=== PATIENT | female | born 1955 | race Caucasian/White ===

== ENCOUNTER → 2020-06-06 11:57 | Outpatient (CLI) | payer MEDICARE, BC, SELFPAY ==
--- NOTE | ~2020-06-06 | DEXA_ITS ---
Bone Density Report Name: Tangela Cook Age: 64 Sex: Female Ethnicity: White Date of : 1955 Indication: postmenopausal; screening for osteoporosis; parental hip fracture; height loss; Referring Provider: Carine Morales Study: Bone densitometry was performed. Exam Date: June 06, 2020 Accession number: [id number] Bone Density: Region BMD T-score Z-score Classification AP Spine (L1-L4) 0.966 -0.7 1.1 Normal Femoral Neck (Left) 0.653 -1.8 -0.2 Osteopenia Total Hip (Left) 0.820 -1.0 0.2 Normal Femoral Neck (Right) 0.719 -1.2 0.4 Osteopenia Total Hip (Right) 0.863 -0.6 0.6 Normal Total Hip Mean 0.842 -0.8 0.4 Normal World Health Organization criteria for BMD impression classify patients as: Normal (T-score at or above -1.0), Osteopenia (T-score between -1.0 and -2.5), or Osteoporosis (T-score at or below -2.5). 10-year Fracture Risk(1): Major Osteoporotic Fracture 18% Hip Fracture 1.3% Reported Risk Factors: [place] (), Neck BMD=0.653, BMI=29.1, parental fracture (1) FRAX(R) Version 3.08. Fracture probability calculated for an untreated patient. Fracture probability may be lower if the patient has received treatment. Clinical Information Provided by Patient: Parent has had a hip fracture Has used the following medications: Vitamin D Patient maximum height was 66 Menopause Age: 44 No regular weight bearing exercise Drinks caffeinated beverages Onset of menses at age 14 Number of children 1 Impression: The patient has low bone mass, based on the Left Femoral Neck T-score. The patient has an estimated ten-year risk of hip fracture of 1.3% and an estimated ten-year risk of major fracture of 18%, based on the WHO FRAX algorithm. The patient has risk factors, including: parental hip fracture. Discussion: BONE DENSITY IS LOW AT ONE OR MORE SKELETAL SITES. This patient's lowest T-score is low at one or more skeletal sites. It meets the World Health Organization's (WHO) criteria for ?low bone mass? (T-score between -1.0 and -2.5). The patient's 10-year risk of fracture as calculated by FRAX is less than the threshold where pharmacological therapy is recommended by the National Osteoporosis Foundation (NOF). However, all treatment decisions require clinical judgment and consideration of individual patient factors, including patient preferences, comorbidities, previous drug use, risk factors not captured in the FRAX model (e.g., frailty, falls, vitamin D deficiency, increased bone turnover, interval significant decline in bone density) and possible under or overestimation of fracture risk by FRAX. The patient should follow a healthful lifestyle (good nutrition with adequate calcium and vitamin D, and appropriate weight-bearing exercise). Follow-Up: Consider repeating this study in 2 t
--- NOTE | ~2020-06-06 | XR_ITS ---
EXAMINATION: XR thoracic spine 2V DATE: 06/06/2020 13:08 INDICATION: Dorsalgia, unspecified. TECHNIQUE: 3 views of thoracic spine were obtained. COMPARISON: None. FINDINGS: There is 9 degrees levocurvature of lower thoracic spine. Vertebral body heights are normal . There is moderate to severely decreased disc height at multiple levels in mid thoracic spine. There are changes of anterior fusion procedure in cervical spine. Bilateral breast implants are noted. IMPRESSION: 1. Severe thoracic spondylosis. Reviewed, dictated and finalized at location A.
--- NOTE | ~2020-06-06 | XR_ITS ---
XR lumbar spine 2-3V 06/06/2020 13:08 Indication: Back pain Procedure: 3 views lumbar spine Comparison: No prior studies for comparison. Findings: There is disc narrowing at all lumbar levels. Normal lumbar lordosis. No fracture, subluxat ion or dislocation. There is dextroconvex scoliosis centered at L2-3. Sacral foramen are symmetric. Impression: 1: Moderate lumbar spondylosis with dextrocurvature of the lumbar spine. Reviewed, dictated and finalized at location B. Impression: 1: Moderate lumbar spondylosis with dextrocurvature of the lumbar spine.
== END ==
PROVIDERS: Visit Provider Physician Assistant
DX: M47.896 Other spondylosis, lumbar region (principal); M47.894 Other spondylosis, thoracic region; Z78.0 Asymptomatic menopausal state; M85.852 Other specified disorders of bone density and structure, left thigh; M85.851 Other specified disorders of bone density and structure, right thigh
CPT/HCPCS: 72070; 72100; 77080

== ENCOUNTER 2022-12-28 01:34 | Day surgery (SDC) | payer MEDICARE, SELFPAY ==
[2022-12-27 13:21] VITALS: BMI 33.3
[2022-12-28] VITALS (10 sets, daily range): BP systolic 122–154; BP diastolic 59–99; PULSE 70–81; RESP 14–18; TEMP 36.3–36.4; O2SAT 94–98; BMI 33.1
[2022-12-28 08:27] LABS: Basophils Absolute Auto 0.1 K/mm3 (0.0-0.1); Eosinophils Absolute Auto 0.2 K/mm3 (0-0.3); Eosinophils Percent Auto 2.9 % (0-4.4); Hematocrit 43.4 % (37.0-47.0); Hemoglobin 14.3 g/dL (12.0-15.0); Immature Granulocyte Absolute 0.02 K/mm3 (0.00-0.031); Immature Granulocyte Percent A 0.3 % (0-0.5); Lymphocytes Absolute Auto 1.96 K/mm3 (0.9-3.2); Lymphocytes Percent Auto 26.7 % (18.3-44.2); Mean Corpuscular HGB Conc 32.9 g/dl (32-36); Mean Corpuscular Hemoglobin 29.6 pg (26-34); Mean Corpuscular Volume 89.9 fl (80-100); Mean Platelet Volume 9.4 fl (7.4-10.4); Monocytes Absolute Auto 0.6 K/mm3 (0.1-0.6); Monocytes Percent Auto 7.5 % (2.6-8.5); Neutrophils Absolute Auto 4.5 K/mm3 (1.3-6.7); Neutrophils Percent Auto 61.6 % (45.5-73.1); Platelet Count Result 308 k/mm3 (150-375); Red Blood Count 4.83 M/mm3 (4.2-5.4); Red Cell Distribution Width 14.2 % (11.5-14.5); White Blood Count 7.3 K/mm3 (4.5-10.0)
[2022-12-28 08:36] LABS: Anion Gap 6 mmol/L (8-16); Blood Urea Nitrogen 27 mg/dL (7-17); Calcium 9.1 mg/dL (8.4-10.2); Carbon Dioxide 28 mmol/L (22-30); Chloride 104 mmol/L (98-107); Estimated CRCL calculation 82 ml/min; Estimated Glomerular Filt Rate > 60; Glucose 100 mg/dL (65-110); Potassium 4.4 mmol/L (3.4-5.0); Sodium 138 mmol/L (137-145)
[2022-12-28 08:38] LABS: Prothrombin Time 12.6 Seconds (11.1-14.7)
--- NOTE | 2022-12-28 11:14 | WPDHPUPDATE1 ---
History and Physical Update Update Date/Time: 12/28/22 11:14 History and Physical has been reviewed, including an updated exam of the patient. There are NO changes in the patient's condition. Risks, benefits, and alternatives have been discussed and questions answered. Patient agrees to proceed with procedure.
--- NOTE | 2022-12-28 11:14 | WPDMODSED ---
Moderate Sedation Note-Pt Data Patient Data Diagnosis: Coronary artery disease Present Complaint: Coronary artery disease Procedure to be performed/Plan: Coronary angiography, LHC, +/- PCI Allergies Allergy/AdvReac Type Severity Reaction Status Date / Time codeine Allergy Unknown Rash Verified 12/27/22 13:59 morphine AdvReac Unknown Vomiting Verified 12/27/22 13:59 pentazocine AdvReac Unknown Confusion Verified 12/27/22 13:59 Home Medications Medication Instructions Recorded Confirmed Type ergocalciferol (vitamin D2) 1,250 1,250 mcg PO WEEKLY #12 caps 08/03/22 12/27/22 Rx mcg (50,000 unit) capsule aspirin 81 mg tablet 81 mg PO DAILY 12/27/22 12/28/22 History atorvastatin 40 mg tablet 40 mg PO DAILY 12/27/22 12/27/22 History calcium citrate 500 mg (2,376 mg) 1,000 mg PO DAILY 12/27/22 12/27/22 History effervescent tablet omeprazole 20 mg tablet,delayed 20 mg PO DAILY 12/27/22 12/28/22 History release Current Medications: Active Medications Sodium Chloride (Normal Saline Iv) 500 mls @ 100 mls/hr IV CONT .Q5H GALO Sedation/Anesthesia: No previous sedation/anesthesia problems (including family history). [facility] Past Medical History Medical History Healthy adult Osteopenia Spinal stenosis Surgical History Surgical History H/O cervical discectomy H/O laminectomy History of appendectomy Family History Family History Sibling Diabetes mellitus Father Hypertension Family history of cardiovascular disease Cerebrovascular accident Mother Hypertension Family history of cardiovascular disease Cerebrovascular accident Social History Social History Smoking status: Former smoker Tobacco type: cigarettes Second hand tobacco smoke exposure: No Smoking end date: 09/19/12 Alcohol intake: current Drinks per week: 1 Alcohol use details: occasional glass of wine Substance use: former Substance use type: marijuana Living arrangements: with family Spiritual care concerns: No Mod Sed Physical Exam Physical Exam Pre Procedural Exam: Normal: Appearance, Lungs, Heart Rate, Heart Rhythm, Neuro Exam, Abdomen, Extremities and Skin Hours since solid foods: 12 Hours since liquid intake: 8 Mallampati Classification: class III Internal Medicine - PN: Obj Da Vital Signs Vital Signs: Vital Signs - 24 hr 12/28/22 08:10 Temperature 36.3 C L Pulse Rate 80 Respiratory Rate 16 Blood Pressure 145/66 H Pulse Oximetry 94 Oxygen Delivery Room Air Intake/Output Intake/Output: Intake & Output 12/25/22 12/26/22 12/27/22 12/28/22 23:59 23:59 23:59 23:59 Intake Total 0 Balance 0 Meds/Results Medications: Active Medications Generic Name Dose Route Start Last Admin Trade Name Freq PRN Reason Stop Dose Admin Sodium Chloride 500 mls @ 100 mls/hr 12/28/22 08:00 Normal Saline Iv IV CONT .Q5H GALO Labs 12/28/22 08:18 12/28/22 08:18 Labs: Laboratory Results - last 24 hr 12/28/22 12/28/22 12/28/22 08:18 08:18 08:18 WBC 7.3 RBC 4.83 Hgb 14.3 Hct 43.4 MCV 89.9 MCH 29.6 MCHC 32.9 RDW 14.2 Plt Count 308 MPV 9.4 Immature Gran % (Auto) 0.3 Neut % (Auto) 61.6 Lymph % (Auto) 26.7 Brule % (Auto) 7.5 Eos % (Auto) 2.9 Baso % (Auto) 1.0 Lymph # (Auto) 1.96 Brule # (Auto) 0.6 Eos # (Auto) 0.2 Baso # (Auto) 0.1 Abs Immat Gran (auto) 0.02 Absolute Neuts (auto) 4.5 Absolute Nucleated RBC 0.0 Nucleated RBC % 0.0 PT 12.6 INR 1.0 Sodium 138 Potassium 4.4 Chloride 104 Carbon Dioxide 28 Anion Gap 6 L BUN 27 H Creatinine 0.60 L Estim Creat Clear Calc 82 Estimated GFR > 60 Glucose 100 Calcium 9.1
--- NOTE | 2022-12-28 11:16 | WPDCARDPROC ---
Cardiac Cath Procedure Note Date of procedure:: 12/28/22 Performing physician:: CATHETERIZATION LABORATORY REPORT Procedure Date: 12/28/2022 Automotive Design Drafter: Manda Felton M.D., [facility]? Referring Physician: Manda Felton M.D. ? Anesthesia: Versed and Fentanyl were ordered and given in my presence at 09:55, procedure ended at 11:06. Supervision of nurse monitored moderate sedation with Versed and Fentanyl was provided for 71 minutes. Total of Versed 4mg and Fentanyl 100mcg were administered by the Sap Bpc Developer RN Nicole Burkett. Pre-op Diagnosis: Coronary artery disease, Abnormal coronary CTA, Abnormal coronary CTA FFR Post-op Diagnosis: 1. Significant obstructive ostial LAD stenosis followed distally by a moderate mid LAD stenosis. The IFR of the LAD in the distal vessel is positive for ischemia at 0.84 (<0.89 is positive). 2. Non-obstructive calcific mild disease of the distal left main. MLA of the distal left main on IVUS is 10.4mm2. 3. Moderate stenosis of the mid RCA. IFR of this lesion is negative for ischemia with a value of 0.96 (>0.89 is negative). 4. Right-dominant coronary artery system 5. Left ventricular end-diastolic pressure of 17mmHg Procedure(s): 1. Moderate sedation 2. Ultrasound-guided access of the right radial artery 3. Coronary angiography 4. Left heart cath 5. IFR of the LAD 6. IVUS of the LCX/LM 7. IFR of the RCA Access Site: Right radial artery Brief History and Clinical Indications: Patient is a 67 year old female with anginal symptoms who is referred for [facility] for abnormal stress test. All risks, benefits and alternatives to left heart catheterization with or without percutaneous coronary intervention was discussed at length with the patient. Risk of complications including but not limited to bleeding, infection, arrhythmia, stroke, worsening kidney function, blood loss, groin hematoma, limb loss, emergency coronary artery bypass grafting, and even were discussed with the patient and all questions were answered. The patient understood and wished to proceed. Time out called, patient name, date of , medical record number, allergies, procedure performed, identify Automotive Design Drafter, patient and staff member concurred with accurate data, procedure carried on. Findings: LEFT HEART CATHETERIZATION FINDINGS: 1. Left main: The left main coronary artery has an eccentric calcified mild stenosis. MLA of the distal left main on IVUS is 10.4mm2. 2. Left anterior descending: The ostium of the LAD has an 80-90% stenosis. The proximal LAD has mild diffuse disease. The mid LAD has a moderate stenosis. Distal LAD with luminal irregularities. The diagonal branches are very small vessels with diffuse disease. The IFR of the LAD in the distal vessel is positive for ischemia at 0.84 (<0.89 is positive). 3. Left circumflex: The proximal and mid portions of the left circumflex artery have luminal irregularities. The distal LCX has mild disease. 4. Right coronary artery: The RCA is the dominant vessel. The proximal RCA has mild 20% stenosis. The mid RCA has a focal moderate stenosis. The remainder of the mid and distal RCA has mild luminal irregularities. IFR of the mid RCA lesion is negative for ischemia with a value of 0.96 (>0.89 is negative). 5. Left ventricle: A. End-diastolic pressure 17mmHg. B. LV gram deferred. C. No significant gradient across aortic valve on catheter pullback. Description of Procedure: Informed consent signed and placed in the chart. Patient transferred to laborer wood preserving plant room. Prepped and draped in usual sterile fashion. 2% lidocaine injected subcutaneously in right wrist area. 22-gauge venipuncture catheter used to access the right radial artery with the Seldinger technique. 6-FR slender sheath placed in right radial artery. Nitroglycerine and Verapamil were given intraarterial through the sheath. Versacore wire advanced under fluoroscopy 5F Tig 4 diagnostic catheter engaged Left Main Cor
== END 2022-12-28 15:25 | disposition home or self-care (01) ==
PROVIDERS: PCP Family Medicine Sports Medicine; Visit Provider Internal Medicine
PROC: 4A023N7 Measurement of Cardiac Sampling and Pressure, Left Heart, Percutaneous Approach (ICD-10-PCS; CPT 93452; principal; 2022-12-28 09:30)
PROC: 4A033BC Measurement of Arterial Pressure, Coronary, Percutaneous Approach (ICD-10-PCS; CPT 93571; 2022-12-28 09:30)
PROC: 4A033BC Measurement of Arterial Pressure, Coronary, Percutaneous Approach (ICD-10-PCS; CPT 75580; 2022-12-28 09:30)
DX: I25.10 Atherosclerotic heart disease of native coronary artery without angina pectoris (principal); R94.39 Abnormal result of other cardiovascular function study; M85.80 Other specified disorders of bone density and structure, unspecified site; Z79.82 Long term (current) use of aspirin; Z87.891 Personal history of nicotine dependence
CPT/HCPCS: 36415; 80048; 85025; 85610; 92978; 93458; 93571; 93572; C1753; C1769; C1887; C1894; J1644; J2250; J3010; J7040

== ENCOUNTER 2023-06-16 15:00 | Outpatient (RCR) | payer MEDICARE, SELFPAY | END 2023-07-25 15:24 | disposition home or self-care (01) | LOC: ANHCPREHAB 15:00 | PROVIDERS: Visit Provider Internal Medicine | DX: Z95.1 Presence of aortocoronary bypass graft (principal) | CPT/HCPCS: 93798 ==